=== PATIENT | male | born 1995 | race Caucasian/White ===

== ENCOUNTER → 2018-02-28 | Outpatient (CLI) | payer OTHER ==
[~2018-02-28] MED LIST: NOR10 PO; [UNRECOGNIZED DRUG - CODE] TP
[2018-02-28 11:35] LABS: PLATELET COUNT, AUTOMATED 183 K/uL (150-450)
[2018-02-28 11:46] LABS: LDL CHOLESTEROL 78 mg/dl
== END ==
LOC: LAB 11:09
PROVIDERS: ATTEND Emergency Medicine
DX: Q85.8 Other phakomatoses, not elsewhere classified (principal); D58.2 Other hemoglobinopathies; E83.52 Hypercalcemia
CPT/HCPCS: 36415; 82040; 82247; 82310; 82374; 82435; 82465; 82565; 82728; 82947; 83540; 83550; 83718; 83970; 84075; 84132; 84155; 84295; 84443; 84450; 84460; 84478; 84520; 85025

== ENCOUNTER → 2018-03-03 | Outpatient (CLI) | payer OTHER | LOC: LAB 08:09 | PROVIDERS: ATTEND Emergency Medicine | DX: R79.0 Abnormal level of blood mineral (principal) | CPT/HCPCS: 36415; 81256 ==

== ENCOUNTER → 2018-03-23 | Outpatient (CLI) | payer OTHER | LOC: LAB 08:16 | PROVIDERS: ATTEND Emergency Medicine | DX: D57.1 Sickle-cell disease without crisis (principal) | CPT/HCPCS: 36415; 81270; 82668 ==

== ENCOUNTER 2018-05-18 08:28 | Outpatient (RCR) | payer OTHER ==
[2018-04-05 08:15] VITALS: BP 136/94
[2018-04-05 09:28] LABS: PLATELET COUNT, AUTOMATED 153 K/uL (150-450)
--- NOTE | 2018-04-05 20:18 | ONCOLOGY CONSULTATION ---
EVENT DATE: April 05, 2018 REFERRING PROVIDER Jennifer Luna MD REASON FOR CONSULTATION Concern for hemochromatosis. CHIEF COMPLAINT Patient feels well today, at his baseline. HISTORY OF PRESENT ILLNESS Torsten is a delightful 22-year-old male with a past medical history pertinent for Sturge-Finley syndrome. 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 He is in [place] for the summer. He plans to return for more schooling in [place] after the summer is out. He recently established care with Dr. Luna, and some basic laboratory studies were drawn to include a CBC and CMP. He was found to have an elevated hemoglobin, and subsequent laboratory workup was also performed. He is here today to discuss these laboratory abnormalities. In general, Torsten seems to do quite well considering the circumstances and his medical history. He does have ongoing right hand weakness, and he wears braces on both feet. He does have expected visual field disturbance. He has been followed for headaches as well. In general, he states that his energy level tends to be pretty good in that he is keeping up in school. His appetite tends to be pretty good. I do see that a referral had been made to Gastroenterology for concerns of abdominal pain and a workup which at this point is potentially pending. PAST MEDICAL HISTORY History of Sturge-Finley syndrome, status post left hemispherectomy at [facility] for seizures. This was reportedly performed at 10 months of age. He has some residual right-sided weakness, modest problems with word- finding at times, and right-sided homonymous hemianopia. PAST SURGICAL HISTORY Please see above. He is status post wisdom teeth extraction. CURRENT MEDICATIONS None. ALLERGIES No known drug allergies. REVIEW OF SYSTEMS Positive for headache, but is otherwise unremarkable from what is noted above. SOCIAL HISTORY The patient is a nonsmoker and nondrinker. There is no history of illicit drug use. FAMILY HISTORY There is a reported family history of colon cancer in grandmother diagnosed at young age and history of prostate/bladder (?) in grandfather. PHYSICAL EXAMINATION VITAL SIGNS: Temperature 98.1, blood pressure 136/94, heart rate is 89, respirations 16, oxygen saturation is 95% on room air. Weight is 70.5 kg. GENERAL: Patient is alert and oriented times three. No apparent distress. Sitting in the exam room chair. HEENT: Anicteric sclerae. EXTREMITIES: Braces on both lower extremities. NEUROLOGIC: Weakness of the right upper extremity, but good range of motion and obstetrics nurse practitioner strength on left upper extremity. The rest of the physical exam is deferred for extensive discussion today. LABORATORY Studies are reviewed per the [facility] record. White blood cell count 6700, hemoglobin 18.9, hematocrit 52.6, platelet count 153,000, white blood cell differential is normal. Chemistries from comprehensive metabolic panel are unremarkable with the exception of total bilirubin which is modestly elevated at 2.1. Serum calcium is 9.2 (down from 10.3 noted on February 28, 2018. 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 IMAGING None today. ASSESSMENT AND PLAN H63D homozygosity, polycythemia. I had a good visit with Torsten and his family today. We were joined by Caren Ambriz NP. We spent time today discussing his medical history, in particular the Sturge-Finley syndrome and left hemispherectomy performed reportedly in infancy. He does have some ongoing neurologic issues related to this, and his family has had ongoing efforts to find particular subspecialists in this area. We discussed his laboratory findings in detail. He previously had a very slightly elevated calcium. This has normalized today. He also had a slightly elevated total bilirubin. 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 We moved on to discuss his elevated hemoglobin, noted today to be 18.9 with corresponding hematocrit of 52.6. His other counts are normal. We spent time discussing this in the context of his known abnormal HFE studies. Homozygosity for the H63D mutation is not commonly associated with clinically significant iron overload. His iron studies at this time are not consistent with iron overload. JAK2 mutation, previously checked, was negative. We discussed the difference between primary and secondary polycythemia. At this point, laboratory studies are not particularly indicative of a myeloproliferative disorder such as polycythemia vera. His erythropoietin level is normal, and again, the JAK2 mutation is negative. We discussed the possibility for any type of chronically low oxygen state. He is a nonsmoker. His initial labs in February were drawn right when he got back from [place]. He does not report a history of snoring. His parents spent the last couple days with him and confirm that snoring was not noticed. We moved on to discuss the possible merits of therapeutic phlebotomy. This would be performed at this point for the purpose of bringing his hemoglobin back into normal range , but not necessarily for treating any type of iron overload. We did discuss the potential concern for developing iron deficiency without anemia with therapeutic phlebotomy. As far as further diagnostic studies to look for causes for secondary erythrocytosis, one could consider a sleep study despite his history of no snoring. I would query his past neurologic/surgical history in potentially playing a role in possible apnea. As discussed with Torsten, we will be back in touch with him with today's laboratory values which resulted after he left the clinic. I will follow up with him during my next visit to [place], and we will review these laboratory values in person. I do think it would be reasonable for him to consider periodic blood donations/therapeutic phlebotomy, but we would want to be careful with frequency. The patient and his family members had multiple insightful and appropriate questions for me today. I believe I have answered all their questions to their satisfaction. Thank you very much, Dr. Luna, for allowing me to take part in the care of this remarkable young man. Please do not hesitate to call with any questions or concerns. AKI
[2018-05-18 08:28] VITALS: BP 119/82
--- NOTE | 2018-05-18 14:37 | ONCOLOGY FOLLOW UP NOTE ---
EVENT DATE: May 18, 2018 REASON FOR FOLLOWUP 1. Polycythemia. 2. H63D homozygosity. INTERIM HISTORY Torsten returns to clinic for a followup visit today. He is accompanied by his mother. Since our last visit, he has been doing relatively well, basically as his baseline. He has no new symptoms to report. 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 He had laboratory studies drawn at the time of his initial visit with me, and he and his mother are here to review the results. REVIEW OF SYSTEMS Otherwise negative, and all systems were reviewed. 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 This was reportedly performed at 10 months of age. He has some residual right-sided weakness, modest problems with word- finding at times, and right-sided homonymous hemianopia. CURRENT MEDICATIONS None. ALLERGIES No known drug allergies. SOCIAL HISTORY The patient is a nonsmoker and nondrinker. There is no history of illicit drug use. FAMILY HISTORY There is a reported family history of colon cancer in grandmother diagnosed at young age and history of prostate/bladder (?) in grandfather. PHYSICAL EXAMINATION VITAL SIGNS: Temperature 97.2, blood pressure 119/82, heart rate is 81, respirations 16, oxygen saturation is 94% on room air. Weight is 70.3 kg. GENERAL: Patient is alert and oriented x three in no apparent distress, sitting in the exam room chair. He is in good spirits and quite interactive. HEENT: Exam reveals anicteric sclerae. NEUROLOGIC: Exam shows no acute changes from prior exam. SKIN: Exam reveals no concerning rash or lesion. EXTREMITIES: Exam reveals no edema, clubbing or cyanosis. LABORATORY DATA Laboratory studies are reviewed per the [facility] record. IMAGING None today. ASSESSMENT AND PLAN 1. Polycythemia. I had a good visit with Torsten and his mother today. We spent time reviewing the results of his previously drawn labs. He remains with an elevated hemoglobin and hematocrit. We reviewed his prior workup, which had shown JAK2 negativity, arguing against a myeloproliferative disorder, but not ruling it out 100%. He does have a sleep study planned for later this week, and I have asked that these results be forwarded to me. We discussed mechanisms for polycythemia again today. We also discussed the merits of consideration for therapeutic phlebotomy once again. He does have a serum ferritin of 20, and we would run some risk of development of symptomatic iron deficiency with therapeutic phlebotomy, but I do not think it would be unreasonable to have him start. We would even start, if he chose, to draw a half unit off with each therapeutic phlebotomy, perhaps two to four weeks apart. The patient would like to wait until his sleep study is performed. This is not unreasonable. He will be returning back to [place] for college in about two weeks. I have recommended that he establish care with a mobile therapist in [place], perhaps at the [facility]. I will also give him a prescription for standing orders for repeat CBC, ferritin and iron panel to be done monthly to see whether or not his hemoglobin actually goes down when [place]. Patient agrees to call with any new or unexplained symptoms in the meantime. 2. Hemochromatosis H63D homozygosity. As discussed with Torsten and his mother today, he does not have evidence of iron overload, which is not necessary unexpected with this genotype. If we did move forward in the future with therapeutic phlebotomy, it would not be for the purpose of treating iron overload. He understands this well. The patient and his mother had several additional questions for me today, and I believe I answered all of their questions to their satisfaction. He will sign up for [facility] through [employer] so that we can be in touch from a distance if necessary. I spent a total of 30 minutes of [id number] time with the patient and his mother today, 25 minutes of this was spent in direct counseling and coordination of care. AKI
== END 2018-05-19 14:36 | disposition home or self-care (01) ==
LOC: ONC 08:28
PROVIDERS: ATTEND Internal Medicine Medical Oncology
DX: D75.1 Secondary polycythemia (principal); R53.1 Weakness; E83.110 Hereditary hemochromatosis
CPT/HCPCS: 82040; 82247; 82248; 82310; 82374; 82435; 82565; 82728; 82947; 83540; 83550; 84075; 84132; 84155; 84295; 84450; 84460; 84520; 85025; 99202; 99212

== ENCOUNTER → 2018-05-20 | Outpatient (CLI) | payer OTHER | LOC: RESP 19:53 | PROVIDERS: ATTEND Emergency Medicine | DX: G47.33 Obstructive sleep apnea (adult) (pediatric) (principal); G47.61 Periodic limb movement disorder ==

== ENCOUNTER → 2018-05-31 | Outpatient (CLI) | payer OTHER | LOC: LAB 10:44 | PROVIDERS: ATTEND Emergency Medicine | DX: G62.9 Polyneuropathy, unspecified (principal) | CPT/HCPCS: 36415; 82607; 83090; 83921 ==

== ENCOUNTER → 2019-03-16 | Outpatient (CLI) | payer OTHER ==
[2019-03-16 14:31] LABS: PLATELET COUNT, AUTOMATED 193 K/uL (150-450)
== END ==
LOC: LAB 14:12
PROVIDERS: ATTEND Internal Medicine Medical Oncology
DX: D75.1 Secondary polycythemia (principal)
CPT/HCPCS: 36415; 82040; 82247; 82310; 82374; 82435; 82565; 82728; 82947; 83540; 83550; 84075; 84132; 84155; 84295; 84450; 84460; 84520; 85025